=== PATIENT | female | born 1925 | race Caucasian/White ===

== ENCOUNTER 2016-07-03 14:27 | Emergency (ER) | payer MEDICARE, OTHER ==
[~2016-07-03 14:27] MED LIST: ACETAMINOPHEN PO; ACETAMINOPHEN-1 EAC1 PO; ACETAMINOPHEN325 MG PO; ADVAIR 250-501 EACH IH; ADVAIR 500-501 EACH IH; ALBUTEROL S3 ML/VIAL NEB; ASPIR 8181 MG PO; ASPIRIN EC81 MG PO; AZELASTINE HCL6 ML OU; B-121000 MCG PO; CARDIZEM CD120 MG PO; CARDIZEM CD180 MG PO; CARDIZEM CD240 MG PO; CELEBREX200 MG PO; CULTURELLE1 EACH PO; DIGOXIN125 MCG PO; ELIQUIS2.5 MG PO; FERROUS SULFAT325 MG PO; FLAGYL500 MG PO; FUROSEMIDE20 MG PO; IPRAT-ALBUT 0.5-3 ML NEB; K-DUR20 MEQ PO; KLOR-CON 88 MEQ PO; LACTINEX CHEWA1 EACH PO; LACTULOSE10 GM/15 M PO; LACTULOSE20 GM/30 M PO; LANOXIN125 MCG PO; LASIX20 MG PO; LASIX40 MG PO; LEVAQUIN750 MG PO; LIPITOR20 MG PO; MEDROL4 M1 PO; NICOTINE TRANSD14 MG TD; NICOTINE TRANSD14 MG TOP; NICOTINE TRANSD21 MG TOP; POLYETHYLENE GL17 GM PO; POTASSIUM CHLOR8 ME1 PO; PREDNISONE10 MG PO; PROAIR HFA8.5 GM IH; PROTONIX40 MG PO; SPIRIVA18 MCG IH; SYMBICORT 16010.2 GM IH; SYMBICORT 80-10.2 GM IH; SYNTHROID50 MCG PO; TESSALON PERLE100 MG PO; TYLENOL WITH C1 EACH PO; TYLENOL325 MG PO; ULTRAM50 MG PO; VITAMIN D31000 UNI1 PO; VITAMIN D31000 UNIT PO; ZEBETA5 MG PO; ZOFRAN4 MG PO; [UNRECOGNIZED DRUG - OTHER] PO
[2016-07-09] MEDS ORDERED: LASIX40 MG PO (10:07)
[2016-07-09] MEDS ORDERED: PROTONIX40 MG PO (10:07)
[2016-07-09] MEDS ORDERED: ZOFRAN ODT4 MG PO (10:08)
[2016-07-09] MEDS ORDERED: ACETAMINOPHEN-1 EAC1 PO (10:09)
[2016-07-09] MEDS ORDERED: ELIQUIS2.5 MG PO (10:09)
[2016-07-09] MEDS ORDERED: CARDIZEM CD180 MG PO (10:10)
[2016-07-09] MEDS ORDERED: ASPIR 8181 MG PO (10:10)
[2016-07-09] MEDS ORDERED: SYNTHROID50 MCG PO (10:10)
[2016-07-09] MEDS ORDERED: LANOXIN62.5 MCG PO (10:11)
[2016-07-09] MEDS ORDERED: VITAMIN D31000 UNI1 PO (10:11)
[2016-07-09] MEDS ORDERED: POLYETHYLENE GL17 GM PO (10:14)
[2016-07-09] MEDS ORDERED: K-DUR20 MEQ PO (10:14)
[2016-07-09] MEDS ORDERED: ULTRAM50 MG PO (10:15)
[2016-07-09] MEDS ORDERED: IRON325 M1 PO (10:15)
[2016-07-09] MEDS ORDERED: TYLENOL325 MG PO (10:16)
[2016-07-09] MEDS ORDERED: SPIRIVA18 MCG IH (10:17)
[2016-07-09] MEDS ORDERED: PREDNISONE10 MG PO (10:18)
[2016-07-09] MEDS ORDERED: KLONOPIN0.5 MG PO (10:19)
== END 2016-07-03 17:00 | disposition critical access hospital (66) ==
LOC: ER 14:27
DX: J44.1 Chronic obstructive pulmonary disease with (acute) exacerbation (principal); D64.9 Anemia, unspecified; I50.9 Heart failure, unspecified; I48.91 Unspecified atrial fibrillation; K21.9 Gastro-esophageal reflux disease without esophagitis; E03.9 Hypothyroidism, unspecified; N18.9 Chronic kidney disease, unspecified; I12.9 Hypertensive chronic kidney disease with stage 1 through stage 4 chronic kidney disease, or unspecified chronic kidney disease; Z90.710 Acquired absence of both cervix and uterus; Z87.891 Personal history of nicotine dependence; Z79.899 Other long term (current) drug therapy; Z79.82 Long term (current) use of aspirin; Z88.1 Allergy status to other antibiotic agents
CPT/HCPCS: 36415; 87502; 96374

== ENCOUNTER 2016-07-03 14:27 | Inpatient (IN) | payer MEDICARE, OTHER ==
--- NOTE | 2016-07-07 06:29 | NUR ---
0505 - PT HAS NO FURTHER C/O CHEST PAIN.
[2016-07-09] MEDS ORDERED: PROTONIX40 MG PO (10:07)
[2016-07-09] MEDS ORDERED: LASIX40 MG PO (10:07)
[2016-07-09] MEDS ORDERED: ZOFRAN ODT4 MG PO (10:08)
[2016-07-09] MEDS ORDERED: ELIQUIS2.5 MG PO (10:09)
[2016-07-09] MEDS ORDERED: ACETAMINOPHEN-1 EAC1 PO (10:09)
[2016-07-09] MEDS ORDERED: CARDIZEM CD180 MG PO (10:10)
[2016-07-09] MEDS ORDERED: SYNTHROID50 MCG PO (10:10)
[2016-07-09] MEDS ORDERED: ASPIR 8181 MG PO (10:10)
[2016-07-09] MEDS ORDERED: LANOXIN62.5 MCG PO (10:11)
[2016-07-09] MEDS ORDERED: VITAMIN D31000 UNI1 PO (10:11)
[2016-07-09] MEDS ORDERED: POLYETHYLENE GL17 GM PO (10:14)
[2016-07-09] MEDS ORDERED: K-DUR20 MEQ PO (10:14)
[2016-07-09] MEDS ORDERED: ULTRAM50 MG PO (10:15)
[2016-07-09] MEDS ORDERED: IRON325 M1 PO (10:15)
[2016-07-09] MEDS ORDERED: TYLENOL325 MG PO (10:16)
[2016-07-09] MEDS ORDERED: SPIRIVA18 MCG IH (10:17)
[2016-07-09] MEDS ORDERED: PREDNISONE10 MG PO (10:18)
[2016-07-09] MEDS ORDERED: KLONOPIN0.5 MG PO (10:19)
== END 2016-07-08 13:55 | DRG 191 ==
LOC: ER 14:27 → MED 17:01
PROVIDERS: ADMIT Internal Medicine
DX: J44.1 Chronic obstructive pulmonary disease with (acute) exacerbation (principal); I13.0 Hypertensive heart and chronic kidney disease with heart failure and stage 1 through stage 4 chronic kidney disease, or unspecified chronic kidney disease; I50.32 Chronic diastolic (congestive) heart failure; N17.9 Acute kidney failure, unspecified; I47.2 Ventricular tachycardia; Z87.891 Personal history of nicotine dependence; N18.3 Chronic kidney disease, stage 3 (moderate); Z66 Do not resuscitate; I48.2 Chronic atrial fibrillation; K21.9 Gastro-esophageal reflux disease without esophagitis; E03.9 Hypothyroidism, unspecified; I73.9 Peripheral vascular disease, unspecified; Z86.718 Personal history of other venous thrombosis and embolism; Z90.710 Acquired absence of both cervix and uterus; Z84.89 Family history of other specified conditions; Z79.01 Long term (current) use of anticoagulants; Z79.82 Long term (current) use of aspirin; Z79.899 Other long term (current) drug therapy; H91.90 Unspecified hearing loss, unspecified ear; K59.09 Other constipation; Z99.81 Dependence on supplemental oxygen; Z88.1 Allergy status to other antibiotic agents; Z88.0 Allergy status to penicillin; Z88.2 Allergy status to sulfonamides
CPT/HCPCS: 36415; 87502; 97162-GP; 97166

== ENCOUNTER 2016-08-29 18:53 | Inpatient (IN) | payer MEDICARE, OTHER ==
[~2016-08-29] VITALS: Ht 165.1 cm; Wt 50.3 kg
[~2016-08-29 18:53] MED LIST changes: +IRON325 M1 PO; +KLONOPIN0.5 MG PO; +LANOXIN62.5 MCG PO; +ZOFRAN ODT4 MG PO
--- NOTE | 2016-09-02 04:29 | NUR ---
AT APPROXIMATELY 04:00 A FAMILY MEMBER CAME OUT AND SAID PT WAS ANXIOUS/PANIC. FOUND PT ON BSC WITH NASAL CANULA ON TOP OF HER HEAD. HER OXYGEN SATS WERE IN THE LOW 80'S %. TURNED OXYGEN UP TO 3.5 L VIA NASAL CANULA. HAD TC GONZALEZ/ CHARGE TO CALL RESPIRATORY FOR A TREATMENT. HAD ALREADY GIVEN PT KLONOPIN 0.5MG AT 01:00. AFTER RESPIRATORY TREATMENT AND OXYGEN TURNED FROM 3.0L TO 3.5L OXYGEN SATURATION CAME UP TO 99%.
== END 2016-09-02 12:44 | disposition hospice, home (50) | DRG 683 ==
LOC: ER 18:53 → MED 23:48
PROVIDERS: ADMIT Internal Medicine
DX: N17.9 Acute kidney failure, unspecified (principal); N39.0 Urinary tract infection, site not specified; J96.10 Chronic respiratory failure, unspecified whether with hypoxia or hypercapnia; I50.30 Unspecified diastolic (congestive) heart failure; B96.20 Unspecified Escherichia coli [E. coli] as the cause of diseases classified elsewhere; Z16.24 Resistance to multiple antibiotics; J44.9 Chronic obstructive pulmonary disease, unspecified; Z99.81 Dependence on supplemental oxygen; I11.0 Hypertensive heart disease with heart failure; I48.0 Paroxysmal atrial fibrillation; K59.00 Constipation, unspecified; D50.9 Iron deficiency anemia, unspecified; K21.9 Gastro-esophageal reflux disease without esophagitis; E03.9 Hypothyroidism, unspecified; F41.9 Anxiety disorder, unspecified; F32.9 Major depressive disorder, single episode, unspecified; Z87.81 Personal history of (healed) traumatic fracture; Z86.718 Personal history of other venous thrombosis and embolism; Z88.1 Allergy status to other antibiotic agents; Z88.0 Allergy status to penicillin; Z88.2 Allergy status to sulfonamides; Z90.710 Acquired absence of both cervix and uterus; Z79.82 Long term (current) use of aspirin; Z79.01 Long term (current) use of anticoagulants; Z79.899 Other long term (current) drug therapy; Z87.891 Personal history of nicotine dependence; Z66 Do not resuscitate; Z80.9 Family history of malignant neoplasm, unspecified
CPT/HCPCS: 36415; 96365; 96366; 96375; 97162-GP; 97166; J1956